=== PATIENT | male | born 1950 | race African-American/Black ===

== ENCOUNTER 2017-10-19 20:33 | Emergency (ER) | payer MEDICARE ==
[~2017-10-19] VITALS: Ht 175.3 cm; Wt 80.7 kg
[2017-10-19] MEDS ORDERED: DEXTROSE 50% 25 GM / 50ML DISP.SYRIN. IV ONE ×2 (20:42→21:15)
[2017-10-19] MEDS ORDERED: DEXTROSE ORAL GEL 15 GM TUBE. ONE (20:42)
[2017-10-19] MEDS ORDERED: DEXTROSE ORAL GEL 15 GM TUBE. PO ONE (21:30)
[2017-10-19 21:32] LABS: BASO # 0.1 x10^3/uL (0.0-0.2); BASO % 1 % (0-3); EOS # 0.1 x10^3/uL (0.0-0.7); EOS % 1 % (0-3); HEMATOCRIT 29.4 % (39.0-53.0); HEMOGLOBIN 9.8 g/dL (13.0-17.5); LYMPH # 1.1 x10^3/uL (1.0-4.8); LYMPH % 19 % (24-48); MEAN CORPUSCULAR HEMOGLOBIN 30 pg (25-35); MEAN CORPUSCULAR HGB CONC 33 g/dL (31-37); MEAN CORPUSCULAR VOLUME 90 fL (79-100); MONO # 0.5 x10^3/uL (0.0-1.1); MONO % 9 % (0-9); NEUT # 4.3 x10^3uL (1.8-7.7); NEUT % 71 % (31-73); PLATELET COUNT 99 x10^3/uL (140-400); RED BLOOD COUNT 3.27 x10^6/uL (4.30-5.70); RED CELL DISTRIBUTION WIDTH 17.8 % (11.5-14.5)
[2017-10-19 21:41] LABS: ALBUMIN 3.3 g/dL (3.4-5.0); CALCIUM 9.3 mg/dL (8.5-10.1); POTASSIUM 4.6 mmol/L (3.5-5.1); TOTAL BILIRUBIN 0.4 mg/dL (0.2-1.0); TOTAL PROTEIN 6.7 g/dL (6.4-8.2)
[2017-10-19 22:31] LABS: OVALOCYTES FEW; PLT ESTIMATE DECREASED (ADEQUATE); TEAR DROP CELLS OCC
--- NOTE | 2017-10-19 23:16 | PHYS DOC ---
General Chief Complaint: BLOOD SUGAR PROBLEM Stated Complaint: BLOOD SUGAR Time Seen by MD: 22:21 Source: patient, RN/MD Exam Limitations: no limitations Problems: History of Present Illness Initial Comments Patient is a 67-year-old male brought to the ED by his spouse for low glucose and postoperative bleeding. 1. Patient had peritoneal dialysis catheter placed approximately 10 AM today surgeon was Dr. Evangelista Cid at [facility] in [facility]. Patient' s spouse states that although some bleeding was expected, the patient bled through his dressing and clothes this afternoon prompting her to call the dialysis nurse line. She states she was instructed to change the dressing which she did at 1830 today. Since that time she states the patient has bled through his dressing once again. Patient denies any history of coagulopathy he takes 81 mg aspirin daily but no other blood thinners. He denies any increase in pain, chest pain trouble breathing headache fatigue or lethargy or abdominal distention no nausea vomiting fever chills or other symptoms. 2. Patient's spouse states she also checked his glucose at home with a reading of 32. She was unable to increase in providing a secondary reason for bringing him to the emergency department. Patient is not having any mental status changes no fatigue or lethargy and was given oral glucose 2 as well as 2 A of D50 to stabilize his glucose. Patient has not changed his diet today he last ate around 5:30 PM had eggplant Parmesan. Patient is on kidney transplant list at . ED VS: 97.8, 63, 22, 161/56, 100% RA Timing/Duration: other Severity: moderate Modifying Factors: worse with movement, improves with rest Associated Symptoms: other Allergies: Coded Allergies: minoxidil (Verified Allergy, Severe, 10/19/17) Past Medical History Medical History: other (end-stage renal disease on transplant list at , diabetes, hyperlipidemia, hypertension, diabetic retinopathy, diabetic neuropathy, BPH, obstructive sleep apnea uses CPAP, macular edema) Surgical History: other (tonsillectomy, cataracts, cardiac catheterizations last May 2009 no treatment, cholecystectomy, umbilical hernia, left carotid endarterectomy, paracentesis, sternotomy for pericardial effusion,) Social History Smoker: non-smoker Alcohol: none Drugs: none Review of Systems Constitutional: denies chills, denies diaphoresis, denies fever, denies malaise Respiratory: denies cough, denies shortness of breath, denies wheezing Cardiovascular: denies chest pain, denies palpitations, denies syncope Gastrointestinal: denies abdominal pain, denies diarrhea, denies nausea, denies vomiting Genitourinary: denies dysuria, denies frequency, denies hematuria Musculoskeletal: denies back pain, denies joint swelling, denies neck pain Psychiatric/Neurological: denies headache, denies paresthesia, denies seizure Hematologic/Lymphatic: see HPI Physical Exam General Appearance: WD/WN, no apparent distress Ear, Nose, Throat: hearing grossly normal, normal ENT inspection, normal pharynx Neck: non-tender, supple Respiratory: normal breath sounds, no respiratory distress Cardiovascular: normal peripheral pulses, regular rate, rhythm Gastrointestinal: soft (mildly distended, BS diminished/present, appropriately tender no r/g/mass, persistent nonpulsatile bright red bleeding from R incision thru dressing and clothes with clots in his lap) Extremities: normal range of motion, non-tender 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 PHYSICIAN: GASTON DOUGLASS DO REASON: postop peritoneal dialysis catheter bleeding (today) PROCEDURE: CT ABDOMEN PELVIS WO CONTRAST Abdominal and Pelvis CT, Without Contrast: History: Postop peroneal dialysis catheter and bleeding. Comparison: None. Procedure: Axial images are obtained of the abdomen and pelvis, without IV or oral contrast. CT Abdomen without Contrast: Findings: There is tiny pleural effusions with adjacent infiltrates in the lung bases. Evaluation of solid organs is limited without contrast. Evaluation of stomach and bowel is limited without oral contrast. Liver: Normal. Spleen: Normal. Pancreas: Normal. Adrenal Glands: Normal. Kidneys: Small nonobstructive stone in the left renal pelvis.. There are few tiny foci of air within the left abdominal wall. There is diffuse soft tissue edema. There is a small hematoma in the subcutaneous fat of the left abdominal wall anteriorly. There is a dialysis catheter in place. The appendix is normal. There is no lymphadenopathy. Impression: Please see CT Pelvis without Contrast. End Impression. CT Pelvis without Contrast: Findings: The urinary bladder appears normal. There is no free fluid. There is no lymphadenopathy. There is no pericolonic inflammation identified. The prostate is mildly enlarged. There is a trace of free fluid in the pelvis. Impression: 1. Mild free fluid is expected with peritoneal dialysis. 2. Diffuse soft tissue edema could be secondary to sepsis or anasarca. 3. Tiny pleural effusions with adjacent infiltrates in the lung bases. End impression PQRS Compliance Statement: One or more of the following individualized dose reduction techniques were utilized for this examination: 1. Automated exposure control 2. Adjustment of the mA and/or kV according to patient size 3. Use of iterative reconstruction technique Electronically signed by: Kevin Mccullough III, MD (10/19/2017 11:15 PM) [facility] DICTATED AND SIGNED BY: KEVIN MCCULLOUGH III, MD DATE: 10/19/172299 CC: NON,STAFF; GASTON DOUGLASS DO ~ Pertinent labs: Hb 9.8, Hct 29.4, Plt 99, PT 12.6, INR 1.2, PTT 26 2339: I discussed the patient with Dr. Evangelista Cid who recommends sandbag direct pressure and EMS transfer to [facility] in [facility] for admission to environmental services technician hospitalist. 2357: I discussed the patient with Dr. Graham environmental services technician hospitalist who accepts patient for telemetry observation admission. 0011: Patient and his spouse have been updated periodically regarding results and transfer status. Patient is resting comfortably denies any complaints, current FSBS 157, current vitals: 69, 22, 156/55, 100% room air. 0129: EMS is now here and loading the patient no new or changing symptoms vital signs remained stable. IMPRESSIONS: Postoperative bleeding Anemia DM2 w/hypoglycemia Chronic renal failure Departure Time of Disposition: 00:13 Disposition: 02 XFER SHT-TRM HOSP Condition: STABLE GASTON DOUGLASS DO Oct 19, 2017 23:16
[2017-10-20 00:30] VITALS: BP 167/59
== END 2017-10-20 01:31 | disposition short-term general hospital (02) ==
LOC: ER 20:33
DX: T85.838A Hemorrhage due to other internal prosthetic devices, implants and grafts, initial encounter (principal); E11.22 Type 2 diabetes mellitus with diabetic chronic kidney disease; I12.0 Hypertensive chronic kidney disease with stage 5 chronic kidney disease or end stage renal disease; N18.6 End stage renal disease; Z99.2 Dependence on renal dialysis; E11.649 Type 2 diabetes mellitus with hypoglycemia without coma; E11.40 Type 2 diabetes mellitus with diabetic neuropathy, unspecified; D64.9 Anemia, unspecified; E78.5 Hyperlipidemia, unspecified; G47.33 Obstructive sleep apnea (adult) (pediatric); N40.0 Benign prostatic hyperplasia without lower urinary tract symptoms; Z88.8 Allergy status to other drugs, medicaments and biological substances
CPT/HCPCS: 36415; 74176; 80053; 82947; 85025; 85610; 85730; 96374; 99285-25